=== PATIENT | female | born 1995 | race African-American/Black ===

== ENCOUNTER 2020-11-26 13:17 | Emergency (ER) | payer MEDICAID ==
[~2020-11-26] VITALS: Ht 167.6 cm; Wt 68.0 kg
[2020-11-26] MEDS ORDERED: ALBUTEROL (0.083%) 2.5MG/3ML NEB HHN STA (13:32)
[2020-11-26] MEDS ORDERED: DEXAMETHASONE 4MG TABLET PO ONE (13:45)
[2020-11-26 14:33] LABS: UCG SCREEN NEGATIVE
[2020-11-26 15:31] VITALS: BP 127/70
== END 2020-11-26 16:20 | disposition home or self-care (01) ==
LOC: ER 14:06
DX: J45.901 Unspecified asthma with (acute) exacerbation (principal); I49.9 Cardiac arrhythmia, unspecified
CPT/HCPCS: 81025; 93005; 94640; 99283; J8540; Z7610

== ENCOUNTER 2021-03-26 13:15 | Emergency (ER) | payer MEDICAID ==
[~2021-03-26] VITALS: Ht 165.1 cm; Wt 57.0 kg
[2021-03-26] MEDS ORDERED: prednisone (13:20)
[2021-03-26] MEDS ORDERED: albuterol (13:20)
[2021-03-26] MEDS ORDERED: IPRATROPIUM/ALBUTEROL 0.5-3(2.5)MG/3ML NEB HHN ONE (13:45)
[2021-03-26] MEDS ORDERED: DEXAMETHASONE 10 MG/ML VIAL IM ONE (13:45)
[2021-03-26] MEDS ORDERED: ALBU6.7H9 INH (15:16)
[2021-03-26 15:30] VITALS: BP 130/78
== END 2021-03-26 15:30 | disposition home or self-care (01) ==
LOC: ER 13:15
DX: J45.901 Unspecified asthma with (acute) exacerbation (principal); Z79.899 Other long term (current) drug therapy; Z98.890 Other specified postprocedural states
CPT/HCPCS: 71045; 81025; 93005; 94640; 96372; 99283; J1100; Z7610